=== PATIENT | male | born 1950 | race Caucasian/White ===

== ENCOUNTER → 2021-12-12 | Outpatient (CLI) | payer MEDICARE ==
[~2021-12-12] MED LIST: IOPAMIDOL 370 MG/ML 100 ML INFUS..BTL INJ ONE; NITROGLYCERIN 0.4 MG SUBL ONE; SIMVASTATIN40 MG; SODIUM CHLORIDE 0.9% 100 ML ONE; TARKA ER 2-2401 EACH
[2021-12-12 08:54] LABS: CREATININE, SERUM 0.95 mg/dL (0.72-1.25)
== END ==
LOC: CT 07:39
PROVIDERS: ATTEND Internal Medicine Cardiovascular Disease
DX: R07.9 Chest pain, unspecified (principal)
CPT/HCPCS: 36415; 75574; 82565; 84520; J7050; Q9967

== ENCOUNTER → 2024-03-16 | Outpatient (REF) | payer MEDICARE ==
[~2024-03-16] MED LIST changes: -NITROGLYCERIN 0.4 MG SUBL ONE; -SODIUM CHLORIDE 0.9% 100 ML ONE
[2024-03-16 12:37] LABS: CREATININE, SERUM 1.11 mg/dL (0.72-1.25)
== END ==
LOC: CT 11:51
PROVIDERS: ATTEND Internal Medicine Cardiovascular Disease
DX: I71.40 Abdominal aortic aneurysm, without rupture, unspecified (principal)
CPT/HCPCS: 36415; 71275; 82565; 84520; Q9967

== ENCOUNTER → 2025-03-02 | Day surgery (SDC) | payer MEDICARE ==
[2025-02-27 09:39] LABS: BASOPHILS % 0.3 % (0.0-1.0); EOSINOPHILS % 2.1 % (0.0-6.0); LYMPHOCYTES % 13.9 % (18.0-39.1); MONOCYTES % 10.0 % (4.4-11.3); NEUTROPHILS % 73.5 % (38.7-80.0); RED CELL DISTRIBUTION WIDTH 13.1 % (11.7-14.4)
[~2025-03-02] MED LIST changes: +AHCC PO; +CALCIUM PO; +GLUCAGON FOR INJ 1 MG VIAL ONE; +HYOSCYAMINE SULFATE 0.5 MG/ML INJ ONE; +INSTA-FLEX PO; -IOPAMIDOL 370 MG/ML 100 ML INFUS..BTL INJ ONE; +LIDOCAINE HCL 2% LOCAL INJ 5 ML SDV VIAL INJ ONE; +LOSARTAN POTAS100 MG PO; +MAGNESIUM GLUCO27 MG PO; +METOCLOPRAMIDE HCL 10 MG/2ML VIAL ONE; +METOPROLOL SUCC50 MG PO; +MIDAZOLAM HCL 2 MG/2 ML VIAL ONE; +NEURIVA PLUS B1 EACH PO; +NIFEDIPINE ER30 M1 PO; +ONDANSETRON HCL INJ 2MG/ML 2ML 2 MG/ML VIAL ONE; +POTASSIUM GLU2.5 MEQ PO; +PROPOFOL IV EMULSION 10 MG/ML 20 ML VIAL ONE; +SUPER BETA PROSTATE PO; +TUMERIC PO; +VITAMIN B COMP1 EACH PO; +VITAMIN D310 MCG PO; +ZINC GLUCONATE100 MG PO
[2025-03-02] MEDS: LACTATED RINGER'S 1,000 ML ONE (07:12)
[2025-03-02 08:51] VITALS: TEMP 97.8
[2025-03-02 09:05] VITALS: BP 106/70; PULSE 74; RESP 15; O2SAT 98
== END | disposition home or self-care (01) ==
LOC: OR 05:48
PROVIDERS: ATTEND Internal Medicine Gastroenterology
DX: Z12.11 Encounter for screening for malignant neoplasm of colon (principal); K63.5 Polyp of colon; K57.30 Diverticulosis of large intestine without perforation or abscess without bleeding; K64.8 Other hemorrhoids; I10 Essential (primary) hypertension; Z71.89 Other specified counseling; E78.5 Hyperlipidemia, unspecified; Z01.810 Encounter for preprocedural cardiovascular examination; Z01.812 Encounter for preprocedural laboratory examination; Z79.899 Other long term (current) drug therapy; Z68.27 Body mass index [BMI] 27.0-27.9, adult; Z71.3 Dietary counseling and surveillance; Z91.81 History of falling
CPT/HCPCS: 36415; 45385; 85025; 93005; J1610; J1980; J2003; J2250; J2405; J2704; J2765; J7121; 45378